=== PATIENT | female | born 1995 | race African-American/Black ===

== ENCOUNTER 2019-06-25 04:28 | Emergency (ER) | payer OTHER ==
[~2019-06-25] VITALS: Ht 167.6 cm; Wt 68.0 kg
[2019-06-25 04:42] VITALS: BP 99/70
--- NOTE | 2019-06-25 04:46 | NUR ---
ED Nurse Note: Patient walked in to ER due to N/V. States that wants to be sure, she is not . AAO x4, VSS at this time, skin is dry warm to touch.
[2019-06-25 05:00] LABS: APPEARANCE,URINE CLEAR; BILIRUBIN, URINE NEGATIVE (NEGATIVE); COLOR,URINE PALE YELLOW; GLUCOSE, URINE (UA) NEGATIVE (NEGATIVE); KETONES,URINE NEGATIVE (NEGATIVE); LEUKOCYTE ESTERASE ,URINE 1+ (NEGATIVE); NITRITE,URINE NEGATIVE (NEGATIVE); PH,URINE 5 (4.5-8.0); PROTEIN,URINE 1+ (NEGATIVE); UROBILINOGEN,URINE 1 MG/DL (0.0-1.0)
--- NOTE | 2019-06-25 05:00 | NUR ---
ED Nurse Note: Patient walked in to ER with her girlfriend, and as soon as her friend was DC she left with her AMA. Patient left with steady gait, with all belongings. AAO x4, VSS at this time, skin is warm to touch.
--- NOTE | 2019-06-25 05:05 | NUR ---
AMA: SEE AMA FORM.
--- NOTE | 2019-06-25 05:07 | Emergency Room Report ---
History of Present Illness General Chief Complaint: Female Urogenital Problems Source: Patient Present Illness HPI This is a 24-year-old female with no past medical history. She presents with chief complaint abdominal pain and went to check to see if she is . Her last menstruation was beginning of the month. She said it was short only last about 3 days. Denies any fever chills. She has some abdominal cramp and has some nausea and vomiting. She felt like morning sickness. Denies dysuria frequency but denies any fever chills but nothing made it better. Nothing made it worse. No other complaint. Allergies: Coded Allergies: No Known Allergies (Unverified , 06/25/19) Patient History Past Medical History: see triage record, old chart reviewed Past Surgical History: none Pertinent Family History: none Social History: Denies: smoking Last Menstrual Period: 06/2019 Now: No - unk : 1 Para: 1 Immunizations: other Reviewed Nursing Documentation: PMH: Agreed; PSxH: Agreed Nursing Documentation-PMH Past Medical History: No Stated History Review of Systems Eye: Denies: eye pain, blurred vision ENT: Denies: ear pain, nose congestion, throat swelling Respiratory: Denies: cough, shortness of breath Cardiovascular: Denies: chest pain, palpitations Gastrointestinal: Reports: abdominal pain; Denies: diarrhea, nausea, vomiting Musculoskeletal: Denies: back pain, joint pain Skin: Denies: rash Neurological: Denies: headache, numbness Endocrine: Denies: increased thirst, increased urine Hematologic/Lymphatic: Denies: easy bruising All Other Systems: negative except mentioned in HPI Physical Exam Vital Signs Date Time Temp Pulse Resp B/P (MAP) Pulse Ox O2 Delivery O2 Flow Rate FiO2 06/25/19 04:32 98.1 65 16 99/70 (80) 95 Vitals normal Sp02 EP Interpretation: reviewed, normal General Appearance: well appearing, no apparent distress, alert Head: normocephalic, atraumatic Eyes: bilateral eye PERRL, bilateral eye EOMI ENT: hearing grossly normal, normal pharynx Neck: full range of motion, supple, no meningismus Respiratory: chest non-tender, lungs clear, normal breath sounds Cardiovascular #1: regular rate, rhythm, no murmur Gastrointestinal: normal bowel sounds, non tender, no mass, no organomegaly, no bruit, non-distended Musculoskeletal: back normal, gait/station normal, normal range of motion Psychiatric: mood/affect normal Medical Decision Making Diagnostic Impression: Primary Impression: Abdominal pain Qualified Codes: R10.33 - Periumbilical pain ER Course Patient presented with abdominal pain. Exam is benign. No evidence of acute abdomen. Not do a test at home. Urine is equivocal here. is negative. While we were waiting for urinary results, she got up and left with a friend. Her friend also checked in the same time for UTI symptoms. Patient did not want to wait. I suspect that she just want a test. Last Vital Signs Date Time Temp Pulse Resp B/P (MAP) Pulse Ox O2 Delivery O2 Flow Rate FiO2 06/25/19 04:42 98.1 16 99/70 95 06/25/19 04:32 65 Status: unchanged Disposition: AGAINST MEDICAL ADVICE Condition: Stable Vince Hill MD Jun 25, 2019 05:07
== END 2019-06-25 05:00 | disposition left against medical advice (07) ==
LOC: EMR 04:44
DX: R10.33 Periumbilical pain (principal); Z32.02 Encounter for pregnancy test, result negative
CPT/HCPCS: 81003; 81025; 99282